=== PATIENT | female | born 1975 | race Caucasian/White ===

== ENCOUNTER 2017-08-28 11:53 | Emergency (ER) | payer MEDICAID ==
[2017-08-28 11:54] VITALS: BMI 34.7
[2017-08-28 12:03] VITALS: BP 141/88; PULSE 89; RESP 18; TEMP 97.2; O2SAT 99
[2017-08-28] MEDS ORDERED: Naproxen 500 MG TAB PO STA (12:30)
--- NOTE | 2017-08-28 13:06 | ED PDOC ---
Upper Extremity Pain/Injury Time Seen by Provider: 08/28/17 12:26 Chief Complaint (Nursing): Upper Extremity Problem/Injury Chief Complaint (Provider): Left hand injury History Per: Patient History/Exam Limitations: no limitations Onset/Duration Of Symptoms: Hrs Current Symptoms Are (Timing): Still Present Quality: "Pain" Exacerbating Factor(s): Strenuous Use Of Affected Area Additional Complaint(s): 42yo female, presents to ED for evaluation of injury to her left 5th digit prior to arrival. Patient reports she tripped and fell, injuring her finger. Patient states she is unable to move her finger due to pain. She denies any numbness or tingling. She has no other medical complaints. Past Medical History Reviewed: Historical Data, Nursing Documentation, Vital Signs Vital Signs: Last Vital Signs Temp 97.2 F L 08/28/17 12:01 Pulse 89 08/28/17 12:01 Resp 18 08/28/17 12:01 BP 141/88 08/28/17 12:01 Pulse Ox 99 08/28/17 12:01 - Medical History PMH: No Chronic Diseases - Surgical History Surgical History: - Family History Family History: States: Unknown Family Hx - Immunization History Hx Tetanus Toxoid Vaccination: No Hx Influenza Vaccination: No Hx Pneumococcal Vaccination: No - Home Medications Home Medications: Ambulatory Orders Medication Instructions Recorded oxyCODONE/Acetaminophen [Percocet 1 tab PO Q4 PRN #60 tab 04/20/14 5/325 mg Tab] Gabapentin [Neurontin] 100 mg PO DAILY 09/22/16 Meloxicam [Mobic] 7.5 mg PO DAILY 09/22/16 Prednisone 50 mg PO DAILY #5 tablet 09/22/16 tiZANidine [Zanaflex] 4 mg PO BID 09/22/16 traMADol [Ultram] 50 mg PO TID PRN #12 tab 08/28/17 - Allergies Allergies/Adverse Reactions: Allergies Allergy/AdvReac Type Severity Reaction Status Date / Time No Known Allergies Allergy Verified 04/18/14 05:43 Review of Systems ROS Statement: Except As Marked, All Systems Reviewed And Found Negative Musculoskeletal: Positive for: Hand Pain (left hand injury) Physical Exam - Reviewed Nursing Documentation Reviewed: Yes Vital Signs Reviewed: Yes - Physical Exam Appears: Positive for: Non-toxic, Uncomfortable (mild painful distress) Neck: Positive for: Supple Cardiovascular/Chest: Positive for: Regular Rate, Rhythm Pulses-Radial (L): 2+ Pulses-Radial (R): 2+ Extremity: Positive for: Capillary Refill (< 2 seconds; neurovascularly intact) , Deformity (dislocation noted at PIP of left 5th digit). Negative for: Normal ROM (Decreased ROM of left 5th digit due to pain) Neurologic/Psych: Positive for: Alert, Oriented. Negative for: Motor/Sensory Deficits - ECG O2 Sat by Pulse Oximetry: 99 (RA) Pulse Ox Interpretation: Normal Medical Decision Making Medical Decision Making: Impression: Left 5th digit injury Plan: -- On exam, there is noted dislocation at PIP of left 5th digit. Dislocation immediately reduced by provider. Patient neurovascularly intact post-reduction. -- XR Left hand s/p reduction ordered -- Naproxen 500mg PO Time: 1309 XR Left Hand: Small chip fracture noted to 5th mid-phalanx, only visible on lateral view, as read by PA. Patient advised that official radiology read of XR is still pending and will call the patient if there is any discrepancy within 24 hours. XRs reviewed and results d/w the patient. Finger splint applied. Neurovascular intact post splint application. Advised to follow up with orthopedic referral provided in 1-2 days without fail. Advised to take medication as prescribed. Return to the emergency room at any time for any new or worsening symptoms. Patient states she fully agrees with and understands discharge instructions. States that she agrees with the plan and disposition. Verbalized and repeated discharge instructions and plan. I have given the patient opportunity to ask any additional questions. Scribe Attestation: Documented by Shireen Locke acting as a scribe for CHITO Viera Provider Attestation: All medical record entries made by the Scribe were at my direction and personally dictated by me. I have reviewed the chart and agree that the record accurately reflects my personal performance of the history, physical exam, medical decision making, and the department course for this patient. I have also personally directed, reviewed, and agree with the discharge instructions and disposition. Disposition - Clinical Impression Clinical Impression: Finger dislocation, Finger fracture - Patient ED Disposition Is Patient to be Admitted: No Counseled Patient/Family Regarding: Studies Performed, Diagnosis, Need For Followup, Rx Given - Disposition Referrals: Mu Cool III, MD [Staff Provider] - Disposition: Routine/Home Disposition Time: 13:11 Condition: STABLE Prescriptions: traMADol [Ultram] 50 mg PO TID PRN #12 tab PRN Reason: Pain, Moderate (4-7) Instructions: Finger Fracture (ED), Finger Dislocation (ED) Forms: [facility] ([place]), [facility] ED School/Work Excuse Print Language: MACEDONIAN - PA / WELLNESS PROGRAM ADMINISTRATOR / Resident Statement MD/DO has reviewed & agrees with the documentation as recorded.
--- NOTE | 2017-08-28 13:28 | RAD ---
PROCEDURE: Left Hand Radiographs. HISTORY: pain COMPARISON: None. FINDINGS: BONES: Normal. No fracture. JOINTS: Normal. No osteoarthritic changes. SOFT TISSUES: Normal. OTHER FINDINGS: None. IMPRESSION: Normal left hand radiographs.
== END 2017-08-28 13:30 | disposition home or self-care (01) ==
LOC: H.ER 11:53
DX: S63.207A Unspecified subluxation of left little finger, initial encounter (principal); W19.XXXA Unspecified fall, initial encounter; Y92.89 Other specified places as the place of occurrence of the external cause